=== PATIENT | female | born 2005 | race Caucasian/White ===

== ENCOUNTER 2023-12-27 18:28 | Emergency (ER) | payer OTHER, SELFPAY ==
[2023-12-27] VITALS (11 sets, daily range): BP systolic 101–142; BP diastolic 54–85; PULSE 72–130; RESP 17–20; TEMP 36.8–37.2; O2SAT 99–100
--- NOTE | ~2023-12-27 | US_ITS ---
EXAMINATION: US abdomen limited DATE: 12/27/2023 20:14 INDICATION: right upper quadrant pain TECHNIQUE: Multiple grayscale and Doppler ultrasound images of limited portions of the abdomen were o btained. COMPARISON: None available. FINDINGS: The visualized portions of the pancreas are normal. The liver is mildly enlarged, with norm al echogenicity and echotexture. No surface nodularity. Normal hepatopetal flow in the main portal ve in. The gallbladder is normal with no abnormal wall thickening, pericholecystic fluid or stones. The common bile duct measures 3 mm. There was a positive sonographic Montero sign. IMPRESSION: Hepatomegaly. Positive sonographic Montero sign with otherwise normal appearing gallbladder and common bile duct. Reviewed, dictated and finalized at location K. IMPRESSION: Hepatomegaly. Positive sonographic Montero sign with otherwise normal appearing gallbladder an d common bile duct.
--- NOTE | ~2023-12-27 | CT_ITS ---
EXAMINATION: CT abdomen pelvis w con DATE: 12/27/2023 20:17 INDICATION: right lower quadrant pain TECHNIQUE: Computed tomography (CT) of the abdomen and pelvis was performed with 100 mL Omnipaque-350 intravenous contrast. Automated exposure control and iterative reconstruction technique were employe d. The dose-length product was 500.48 mGy-cm. COMPARISON: Right upper quadrant ultrasound, same date. FINDINGS: Lower thorax: Unremarkable Liver: Mildly enlarged. Biliary/Gallbladder: Gallbladder is normal. No bile duct dilation. Pancreas: No mass or duct dilation. Spleen: Normal. Adrenals:No mass. Kidneys: No suspicious mass, obstructing stone, or hydronephrosis. GI tract: Mild distal esophageal and gastric wall edema. No small or large bowel dilation. Normal sheryl endix. Mesentery/Peritoneum: No ascites, mass, or free air. Retroperitoneum: No mass. Pelvis: Pelvic organs are within normal limits. Soft Tissues: Soft tissues and body wall unremarkable. Bones: No acute osseous finding. IMPRESSION: Mild esophagitis/gastritis. Mild hepatomegaly. Otherwise unremarkable CT abdomen and pelvis findings. Reviewed, dictated and finalized at location K.
[2023-12-27 19:22] LABS: Basophils Percent Auto 0.5 % (0.2-1.2); Eosinophils Absolute Auto 0.1 K/mm3 (0-0.3); Eosinophils Percent Auto 1.8 % (0-4.4); Hematocrit 38.3 % (37.0-47.0); Hemoglobin 12.9 g/dL (12.0-15.0); Lymphocytes Absolute Auto 0.68 K/mm3 (0.9-3.2); Lymphocytes Percent Auto 17.6 % (18.3-44.2); Mean Corpuscular HGB Conc 33.7 g/dl (32-36); Mean Corpuscular Hemoglobin 30.4 pg (26-34); Mean Corpuscular Volume 90.1 fl (80-100); Mean Platelet Volume 9.9 fl (7.4-10.4); Monocytes Absolute Auto 0.6 K/mm3 (0.1-0.6); Monocytes Percent Auto 15.5 % (2.6-8.5); Neutrophils Absolute Auto 2.5 K/mm3 (1.3-6.7); Neutrophils Percent Auto 64.6 % (45.5-73.1); Platelet Count Result 153 k/mm3 (150-375); Red Blood Count 4.25 M/mm3 (4.2-5.4); Red Cell Distribution Width 11.8 % (11.5-14.5); White Blood Count 3.9 K/mm3 (4.5-10.0)
[2023-12-27 19:37] LABS: Appearance Urine Clear (Clear); Bilirubin Urine Negative (Negative); Blood Urine Negative (Negative); Color Urine Yellow (Yellow); Glucose Urine UA Negative (Negative); Ketones Urine 3+ mg/dL (Negative); Leukocyte Esterase Ur Negative LEU/UL (Negative); Nitrate Urine Negative (Negative); Protein Urine Negative (Negative); Specific Grav Ur 1.028 (1.001-1.035); Urobilinogen Urine 0.2 mg/dL (<2.0); pH Urine 5.5 (5.0-9.0)
[2023-12-27 19:39] LABS: Alanine Aminotransferase 23 U/L (6-35); Albumin Level 4.3 g/dL (3.5-5.1); Alkaline Phosphatase 43 U/L (38-126); Anion Gap 6 mmol/L (8-16); Aspartate Amino Transferase 31 U/L (14-36); Bilirubin,Total 0.4 mg/dL (0.2-1.3); Blood Urea Nitrogen 14 mg/dL (7-17); Calcium 9.6 mg/dL (8.4-10.2); Carbon Dioxide 24 mmol/L (22-30); Chloride 103 mmol/L (98-107); Estimated Glomerular Filt Rate > 60; Glucose 103 mg/dL (65-110); Lipase 33 U/L (23-300); Potassium 4.3 mmol/L (3.4-5.0); Sodium 133 mmol/L (137-145)
[2023-12-27 19:41] LABS: Add Urine Microscopic? NO
[2023-12-27] MEDS: SODIUM CHLORIDE 0.9% IV 1,000 ML 999 ML IV CONT (20:21)
[2023-12-27 21:24] LABS: Influenza A QL RT-PCR Positive (Negative); Influenza B QL RT-PCR Negative (Negative); RSV RNA, RT-PCR Negative (Negative); SARS-CoV-2 RNA PCR Negative (Negative)
--- NOTE | 2023-12-27 21:55 | ED.GENADULT ---
HPI - General Adult General Chief complaint: Abdominal Pain Stated complaint: abdominal pain Time Seen by Provider: 12/27/23 19:14 History of Present Illness HPI narrative: Patient 18-year-old female who presents emergency department with chief complaint of abdominal pain. The patient states she has been having some pressure in her ears some upper respiratory symptoms that started yesterday the patient states that she also has been having epigastric and right upper quadrant pain the patient reports she has prior history of the the gallbladder dysfunction Related Data Allergies Allergy/AdvReac Type Severity Reaction Status Date / Time No Known Allergies Allergy Verified 12/27/23 21:23 Review of Systems Review of Systems: A 10 system review of systems was completed on the patient and is negative except for what is stated in the HPI. Nursing and ancillary documentation was reviewed. Exam Narrative: GENERAL: Well-appearing, well-nourished, and in no acute distress. HEAD: Normocephalic, atraumatic. EYES: PERRLA and EOMI. ENT: Nares clear, no rhinorrhea or epistaxis. Mucous membranes moist. NECK: Supple. CHEST: Clear to auscultation. No respiratory distress. HEART: Regular rate and rhythm. No murmur heard. Normal peripheral pulses. ABDOMEN: Soft, tenderness to palpation right upper quadrant, nondistended, normal active bowel sounds. EXTREMITIES: Normal range of motion. No edema. SKIN: Warm, dry, no rash. NEURO: No focal deficits. Alert and oriented x3. PSYCH: Normal mood and affect. Course Vital Signs Vital signs: Vital Signs Temperature 37.2 C 12/27/23 18:34 Pulse Rate 130 H 12/27/23 18:34 Respiratory Rate 20 12/27/23 18:34 Blood Pressure 142/75 H 12/27/23 18:34 Pulse Oximetry 99 12/27/23 18:34 Temperature 37.2 C 12/27/23 18:34 Pulse Rate 97 12/27/23 21:20 Respiratory Rate 18 12/27/23 21:20 Blood Pressure 102/54 L 12/27/23 21:20 Pulse Oximetry 100 12/27/23 21:20 Medical Decision Making [facility] Narrative Medical decision making narrative: Differential diagnosis include cholecystitis, choledocholithiasis, pancreatitis, biliary colic, viral syndrome, COVID, flu, RSV Laboratory studies were obtained on the patient showed a white count of 3.9 electrolytes within normal limits liver enzymes were normal lipase was normal urinalysis showed 3+ ketones but otherwise negative influenza a was positive CT scan of the abdomen pelvis showed Mild esophagitis/gastritis. Mild hepatomegaly. Otherwise unremarkable CT abdomen and pelvis findings. Ultrasound of the right upper quadrant showed Hepatomegaly. Positive sonographic Montero sign with otherwise normal appearing gallbladder and common bile duct. The case was discussed with surgery on-call who recommended the patient follow-up with her primary care provider and the patient may need new HIDA scan to be performed as her last 1 was at age 8 Vital Signs Vital Signs: Vital Signs Temperature 37.2 C 12/27/23 18:34 Pulse Rate 130 H 12/27/23 18:34 Respiratory Rate 20 12/27/23 18:34 Blood Pressure 142/75 H 12/27/23 18:34 Pulse Oximetry 99 12/27/23 18:34 Temperature 37.2 C 12/27/23 18:34 Pulse Rate 97 12/27/23 21:20 Respiratory Rate 18 12/27/23 21:20 Blood Pressure 102/54 L 12/27/23 21:20 Pulse Oximetry 100 12/27/23 21:20 Lab Data 12/27/23 19:17 12/27/23 19:17 Labs: Lab Results 12/27/23 12/27/23 12/27/23 Range/Units 19:17 19:25 20:39 WBC 3.9 L (4.5-10.0) K/mm3 RBC 4.25 (4.2-5.4) M/mm3 Hgb 12.9 (12.0-15.0) g/dL Hct 38.3 (37.0-47.0) % MCV 90.1 (80-100) fl MCH 30.4 (26-34) pg MCHC 33.7 (32-36) g/dl RDW 11.8 (11.5-14.5) % Plt Count 153 (150-375) k/mm3 MPV 9.9 (7.4-10.4) fl Immature Gran % (Auto) 0.0 (0-0.5) % Neut % (Auto) 64.6 (45.5-73.1) % Lymph % (Auto) 17.6 L (18.3-44.2
== END 2023-12-27 22:37 | disposition home or self-care (01) ==
PROVIDERS: Emergency Medicine; Emergency Provider Emergency Medicine
DX: J10.1 Influenza due to other identified influenza virus with other respiratory manifestations (principal); R10.31 Right lower quadrant pain; Z20.822 Contact with and (suspected) exposure to COVID-19; R16.0 Hepatomegaly, not elsewhere classified; K20.90 Esophagitis, unspecified without bleeding; K29.70 Gastritis, unspecified, without bleeding
CPT/HCPCS: 36415; 74177; 76705; 80053; 81025; 83690; 85025; 87637; 96360; 99284; J7030; Q9967

== ENCOUNTER 2024-03-30 10:15 | Outpatient (CLI) | payer OTHER, SELFPAY ==
--- NOTE | 2024-03-30 | ECG_ITS ---
Test Date: 2024-03-30 11:13:25 Measurements Intervals [place] Rate: 68 P: 46 VA: 145 QRS: 84 QRSD: 80 T: 40 QT: 373 QTc: 398 Interpretive Statements SINUS RHYTHM WITH SINUS ARRHYTHMIA No previous ECG available for comparison Electronically Signed On 03-31-2024 15:50:10 CDT by Miko Decker M.D.
[2024-03-30 11:25] LABS: Basophils Percent Auto 0.7 % (0.2-1.2); Eosinophils Absolute Auto 0.1 K/mm3 (0-0.3); Eosinophils Percent Auto 1.6 % (0-4.4); Hematocrit 41.9 % (37.0-47.0); Hemoglobin 13.7 g/dL (12.0-15.0); Immature Granulocyte Absolute 0.01 K/mm3 (0.00-0.031); Immature Granulocyte Percent A 0.2 % (0-0.5); Lymphocytes Percent Auto 35.9 % (18.3-44.2); Mean Corpuscular HGB Conc 32.7 g/dl (32-36); Mean Corpuscular Hemoglobin 29.5 pg (26-34); Mean Corpuscular Volume 90.1 fl (80-100); Mean Platelet Volume 10.4 fl (7.4-10.4); Monocytes Absolute Auto 0.4 K/mm3 (0.1-0.6); Neutrophils Absolute Auto 3.4 K/mm3 (1.3-6.7); Neutrophils Percent Auto 54.6 % (45.5-73.1); Platelet Count Result 210 k/mm3 (150-375); Red Blood Count 4.65 M/mm3 (4.2-5.4); Red Cell Distribution Width 11.6 % (11.5-14.5); White Blood Count 6.1 K/mm3 (4.5-10.0)
[2024-03-30 11:45] LABS: Alanine Aminotransferase 18 U/L (6-35); Albumin Level 4.7 g/dL (3.5-5.1); Alkaline Phosphatase 45 U/L (38-126); Anion Gap 12 mmol/L (4-12); Aspartate Amino Transferase 21 U/L (14-36); Bilirubin,Total 0.5 mg/dL (0.2-1.3); Blood Urea Nitrogen 15 mg/dL (7-17); Calcium 9.7 mg/dL (8.4-10.2); Carbon Dioxide 22 mmol/L (22-30); Chloride 107 mmol/L (98-107); Estimated Glomerular Filt Rate > 60; Glucose 110 mg/dL (65-110); Potassium 3.9 mmol/L (3.4-5.0); Sodium 141 mmol/L (137-145)
== END 2024-03-30 10:16 | disposition home or self-care (01) ==
DX: Z01.818 Encounter for other preprocedural examination (principal)
CPT/HCPCS: 36415; 80053; 85025; 93005

== ENCOUNTER 2025-01-28 08:28 | Emergency (ER) | payer OTHER, SELFPAY ==
[2025-01-28 08:38] VITALS: BP 128/86; PULSE 104; RESP 20; TEMP 36.3; O2SAT 100
--- NOTE | 2025-01-28 09:05 | ED.ABDPAIN ---
HPI - Abdominal Pain General Chief Complaint: Abdominal Pain Stated Complaint: abd pain Time Seen by Provider: 01/28/25 09:00 Source: patient and RN notes reviewed Mode of arrival: ambulatory Limitations: no limitations History of Present Illness HPI narrative: 19 y/o female with hx IBS, PCOS, cholecystectomy, and redundant colon presented for c/o Left upper and lower abdominal pain x3 days. Endorses associated nausea and liquid diarrhea, and frequent belching of rotten egg taste. Says pain worsened last night at 1999, and has not improved and has not been able to sleep. Taking Omeprazole. Denies hematochezia or melena, fever or lethargy. Pt started semaglutide 5 weeks ago. Denies concern for , on oral BCP. Reports last year she had 7 colonoscopies, 3 UGI's in [place]. Related Data Home Medications ?Medication ?Instructions ?Recorded ?Confirmed ?Last Taken ?Type norgestimate 0.25 mg-ethinyl tablet 01/28/25 Unknown History estradiol 0.035 mg tablet (Estarylla) omeprazole 20 mg capsule,delayed 20 mg PO DAILY 01/28/25 01/28/25 Unknown History release semaglutide 0.5 mg/0.1 mL mg subcut 01/28/25 Unknown History subcutaneous syringe tenapanor 50 mg tablet (Ibsrela) mg 01/28/25 Unknown History Allergies Allergy/AdvReac Type Severity Reaction Status Date / Time No Known Allergies Allergy Verified 01/28/25 08:51 Review of Systems Review of Systems: CONSTITUTIONAL: Denies body aches, fever, chills ENT: Denies rhinorrhea, congestion CARDIOVASCULAR: Denies chest pain, palpitations, or edema. RESPIRATORY: Denies cough or dyspnea. GASTROINTESTINAL: Endorses abdominal pain, nausea, diarrhea. Denies vomiting, hematochezia, melena, hematemesis GENITOURINARY: Denies dysuria, hematuria, or CVA tenderness. SKIN: Denies rash, itching, or wounds. MUSCULOSKELETAL: Denies back pain, joint pain, or myalgia. NEUROLOGIC: Denies headache, numbness, tingling, or weakness. All systems reviewed & are unremarkable except as noted in HPI and below PMFSH Past Medical History Medical History (Updated 01/28/25 @ 09:25 by María Alfaro, PHILL) Cyclic vomiting syndrome PCOS (polycystic ovarian syndrome) IBS (irritable bowel syndrome) Surgical History Surgical History (Updated 01/28/25 @ 09:20 by María Alfaro APRN) History of cholecystectomy Comments At time of signature, I have reviewed and agree with nursing past medical, surgical, social and family history unless otherwise noted. Please see nursing chart for further information. There is no relevant family history pertinent to the presenting complaint Exam Narrative: GENERAL: Well-appearing, and in no acute distress. EYES: EOMI. Conjunctivae normal. ENT: Mucous membranes pink and moist. CHEST: No respiratory distress. Clear to auscultation. HEART: Regular rate and rhythm. No murmur appreciated. Normal peripheral pulses. ABDOMEN: Tender abdomen to LUQ and LLQ. abd soft, mildly distended, hyperactive bowel sounds. No guarding, rebound tenderness, asymmetry, periumbilical tenderness, or suprapubic tenderness. EXTREMITIES: Normal range of motion. No edema. SKIN: Warm, dry, no rash. Capillary refill normal. Normal skin turgor. NEURO: No focal deficits. Alert and oriented x3. PSYCH: Normal affect. Course Course Emergency Course: Patient is aware of diagnosis, understands and agrees to treatment plan. Anticipatory guidance given. Patient agrees to follow-up as directed and is aware of reasons to seek care at the emergency department. Portions of this record may have been created with voice recognition software Level of Care: Express Care Visit Vital Signs Vital signs: Vital Signs Temperature 97.3 F L 01/28/25 08:38 Pulse Rate 104 H 01/28/25 08:38 Respiratory Rate 20 01/28/25 08:38 Blood Pressure 128/86 01/28/25 08:38 Pulse Oximetry 100 01/28/25 08:38 Oxygen Delivery Room Air 01/28/25 08:38 Temperature 97.3 F L 01/28/25 08:38 Pulse Rate 104 H 01/28/25 08:38 Respiratory Rate 20 01/28/25 08:38 Blood Pressure 128/86 01/28/25 08:38 Pulse Oximetry 100 01/28/25 08:38 Oxygen Delivery Room Air 01/28/25 08:38 Transfer Transfered to: [facility] Transportation: Other (Private vehicle) Transfer rationale: Pt is agreeable to transfer. Requests transfer to [facility] via private vehicle declines ambulance. Risks of transportation reviewed with pt including injury, worsening of condition and . v/u. mother will be driving pt; Report called to hospital, spoke with Adela Toro PA-C, accepting physician. Pt is in stable condition at time of transfer. Advised to remain NPO and go directly to the hospital. MDM - Abdominal Pain MDM Narrative Medical decision making narrative: patient presented for complaint of left upper and lower abdominal pain with associated nausea and diarrhea for 3 days. Advised ER transfer. Differential Diagnosis Differential diagnosis: Likely abdominal pain, acute appendicitis, calculus of kidney, constipation, diverticulitis, endometriosis, gastroenteritis, pancreatitis and small bowel obstruction Discharge Plan Discharge Clinical Impression: Abdominal pain Qualifiers: Abdominal location: left upper quadrant Qualified Code(s): R10.12 - Left upper quadrant pain Patient Disposition: Acute Care Hospital Condition: Stable Patient Language: Guyanese Prescriptions: No Action norgestimate-ethinyl estradiol [Estarylla] 0.25-0.035 mg tablet Ibsrela 50 mg tablet semaglutide 0.5 mg/0.1 mL syringe subcut omeprazole 20 mg capsule,delayed release(DR/EC) 20 mg PO DAILY Follow-up/Referrals: UNKNOWN,DOCTOR [Primary Care Provider] - Time of Disposition: 09:08
== END 2025-01-28 09:20 | disposition short-term general hospital (02) ==
PROVIDERS: Emergency Provider Nurse Practitioner Family
DX: R10.12 Left upper quadrant pain (principal); R10.32 Left lower quadrant pain; E28.2 Polycystic ovarian syndrome; K58.9 Irritable bowel syndrome, unspecified
CPT/HCPCS: 99212; G0463

== ENCOUNTER 2025-01-28 09:39 | Emergency (ER) | payer OTHER, SELFPAY ==
--- NOTE | ~2025-01-28 | US_ITS ---
EXAMINATION: US pelvic complete w TV DATE: 01/28/2025 12:36 INDICATION: Left lower quadrant abdominal pain. Polycystic ovarian syndrome. TECHNIQUE: Multiple transabdominal and endovaginal sonographic images of the pelvis were obtained. COMPARISON: CT dated 01/28/2025 FINDINGS: The uterus measures 6.8 x 2.4 x 4.4 cm. The endometrial complex measures 1 mm in thickness. The righ t ovary measures 2.6 x 2.5 x 1.5 cm. There are several subcentimeter anechoic cysts/follicles at the right ovary. Vascular flow with arterial waveforms identified in the right ovary on color Doppler. Th e left ovary is not visualized. Review of CT performed 90 minutes prior demonstrates similar size and appearance of the left ovary to the right ovary, also with a few Almar Osa cyst/follicles and with e nhancement on the postcontrast imaging. There is minimal amount of likely physiologic free fluid in t he pelvis. IMPRESSION: 1. A few subcentimeter anechoic cysts/follicles at the right ovary. Left ovary is not visualized but as noted above on the immediately prior CT of the abdomen and pelvis the left ovary appears similar i n size and appearance, also with a few subcentimeter cysts/follicles and with enhancement visible in both ovaries on the postcontrast CT. 2. Normal uterus and trace amount of likely physiologic free fluid in the deep pelvis. Reviewed, dictated and finalized at location A. IMPRESSION: 1. A few subcentimeter anechoic cysts/follicles at the right ovary. Left ovary is not visualized but as noted above on the immediately prior CT of the abdomen and pelvis the left ovary appears similar in size and appearance, also with a few subcentimeter cysts/follicles and with enhancement visible in both ovaries on the postcontrast CT. 2. Normal uterus and trace amount of likely physiologic free fluid in the deep pelvis.
--- NOTE | ~2025-01-28 | CT_ITS ---
CLINICAL INDICATION: Left lower quadrant pain COMPARISON: 12/27/2023. TECHNIQUE: Multiple contiguous axial images of the abdomen and pelvis were performed following the ad ministration of with 100 mL Omnipaque-350 intravenous contrast The dose-length product (DLP) was 675.43 mGy-cm. Automated exposure control and iterative reconstruction technique were employed. FINDINGS/OBSERVATIONS: Visualized lower thorax: The bilateral lung bases are clear. The heart is of normal size, without pericardial effusion. Liver: The liver demonstrates homogeneous enhancement and is not enlarged. Gallbladder and biliary system: The gallbladder is surgically absent. Pancreas: The pancreas enhances homogeneously without ductal dilatation. Spleen: The spleen enhances homogeneously and is not enlarged. Kidneys: The bilateral kidneys enhance symmetrically without hydronephrosis or renal calculi. Adrenal glands: Unremarkable. Gastrointestinal tract: Air-fluid levels are identified within the distal colon which is somewhat distended without significa nt surrounding inflammatory change or mural thickening. Appendix: The fluid-filled appendix is of normal caliber (axial series, images 116 through 130). Vasculature: Unremarkable. Lymph nodes: No pathologically enlarged or morphologically suspicious lymph nodes within the retroperitoneum or at the root of the mesentery. Pelvic structures: The bladder is decompressed, and otherwise unremarkable. The uterus is anteverted and anteflexed and otherwise unremarkable. Body wall and musculoskeletal: No significant degenerative disease within the lower thoracic or lumbosacral spine. IMPRESSION: Findings which are suggestive of a diarrhea-like illness within the distal colon, for which clinical correlation is needed. No acute intra-abdominal pathology, as detailed above. Reviewed, dictated and finalized at location A. IMPRESSION: Findings which are suggestive of a diarrhea-like illness within the distal colo n, for which clinical correlation is needed. No acute intra-abdominal pathology, as detailed above.
[2025-01-28 09:49] VITALS: BP 132/103; PULSE 116; RESP 19; TEMP 36.9; O2SAT 100
[2025-01-28 10:12] LABS: BEDSIDEPREGUCG Negative (Negative)
[2025-01-28 10:15] LABS: Basophils Percent Auto 0.4 % (0.2-1.2); Eosinophils Absolute Auto 0.3 K/mm3 (0-0.3); Eosinophils Percent Auto 3.5 % (0-4.4); Hematocrit 44.7 % (37.0-47.0); Hemoglobin 15.2 g/dL (12.0-15.0); Immature Granulocyte Absolute 0.02 K/mm3 (0.00-0.031); Immature Granulocyte Percent A 0.3 % (0-0.5); Lymphocytes Absolute Auto 2.67 K/mm3 (0.9-3.2); Lymphocytes Percent Auto 34.9 % (18.3-44.2); Mean Corpuscular Hemoglobin 29.7 pg (26-34); Mean Corpuscular Volume 87.3 fl (80-100); Mean Platelet Volume 10.1 fl (7.4-10.4); Monocytes Absolute Auto 0.6 K/mm3 (0.1-0.6); Monocytes Percent Auto 8.4 % (2.6-8.5); Neutrophils Percent Auto 52.5 % (45.5-73.1); Platelet Count Result 286 k/mm3 (150-375); Red Blood Count 5.12 M/mm3 (4.2-5.4); Red Cell Distribution Width 11.9 % (11.5-14.5); White Blood Count 7.6 K/mm3 (4.5-10.0)
[2025-01-28] MEDS: ONDANSETRON INJ 4 MG/2 ML VIAL IV PUSH (10:16)
[2025-01-28] MEDS: FAMOTIDINE 20 MG/2 ML VIAL IV PUSH (10:16)
[2025-01-28] MEDS: SODIUM CHLORIDE 0.9% IV 1,000 ML 999 ML IV CONT (10:16)
[2025-01-28 10:26] VITALS: BP 114/83; PULSE 87; RESP 17; O2SAT 98
[2025-01-28 10:31] LABS: Add Urine Microscopic? YES; Appearance Urine Cloudy (Clear); Bacteria Urine 3+ /hpf; Bilirubin Urine Negative (Negative); Blood Urine Negative (Negative); Color Urine Yellow (Yellow); Glucose Urine UA Negative (Negative); Ketones Urine Trace mg/dL (Negative); Leukocyte Esterase Ur 2+ LEU/UL (Negative); Mucus Urine Present /lpf; Need Manual Microscopic Reviewed; Nitrate Urine Negative (Negative); Protein Urine 1+ mg/dL (Negative); Specific Grav Ur 1.031 (1.001-1.035); Squamous Epithelial Cell Urine Occasional /hpf (Few); Urobilinogen Urine 0.2 mg/dL (<2.0); WBC Urine 51-100 /hpf (0-3); pH Urine 5.5 (5.0-9.0)
--- OUTSIDE RECORDS SUMMARY | 2025-01-28 10:31 | XMS_ITS | Clinical Summary ---
Author Organization [facility] Address [address] [facility] [address] [place] [address] Phone Care Team Providers Care Tool Distributor Name Role Phone Chayito Rolle MD Primary Care Provider [phone] Allergies No known active allergies Medications SPRINTEC 28 0.25-35 MG-MCG Tablet Take 1 Tab by mouth daily. 2 06/22/2019 Active esomeprazole (NEXIUM) 20 MG CAPSULE DELAYED RELEASE 0 05/08/2019 Active ibuprofen (MOTRIN) 200 MG Tablet Take 200 mg by mouth every 8 hours as needed. Active Acetaminophen (TYLENOL EXTRA STRENGTH PO) Take by mouth. Active methylPREDNISolo ne (MEDROL DOSPACK) 4 MG Tablet Therapy PackIndications: Viral URI with cough Take 1 Tab by mouth See Admin Instruction s. 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 Gender Identity Not on file Sexual Orientation Not on file Last Filed Vital Signs Vital Sign Reading Time Taken Comments Blood Pressure 100/62 07/08/2019 8:18 AM CDT Pulse 94 07/08/2019 8:18 AM CDT Temperature 36.7 C (98 F) 07/08/2019 8:18 AM CDT Respiratory Rate 18 07/08/2019 8:18 AM CDT Oxygen Saturation 97% 07/08/2019 8:18 AM CDT Inhaled Oxygen Concentration - - Weight 62.6 kg (138 lb) 07/08/2019 8:18 AM CDT Height 177.8 cm (5' 10 ) 07/08/2019 8:18 AM CDT Body Mass Index 19.8 07/08/2019 8:18 AM CDT Plan of Treatment Health Maintenance Due Date Last Done Comments Hepatitis C Virus (HCV) Screening 2003 Hepatitis B Immunization (2 of 3 - 3-dose series) 2003 2003 Meningococcal B Immunization (1 of 2 - Standard) 2019 Influenza Immunization (#1) 2024 08/25/2011 SARS-COV-2 Immunization ( season) 2024 Respiratory Syncytial Virus (RSV) Immunization (Adult) (1 - 1-dose 75+ series) 2078 Polio (IPV) Immunization Discontinued 008, 07/29/2004, 02/26/2004, Additional history exists Measles Mumps Rubella (MMR) Immunization Discontinued 05/22/2009, 11/04/2004 Varicella Immunization Discontinued 05/22/2009, 2004 Hepatitis A Immunization Discontinued 04/03/2014, 04/2011 Pneumococcal Immunization Combined Aged Out 04/03/2014, 07/20/2005, 04/29/2004, Additional history exists No longer eligible based on patient's age to complete this topic DTaP/Tdap/Td Immunization Discontinued 2014, 05/22/2009, 07/20/2005, Additional history exists Meningococcal Immunization (ACWY) Aged Out 05/30/2015 No longer eligible based on patient's age to complete this topic TdaP Immunization Completed 05/30/2015 Human Papillomavirus (HPV) Immunization Completed 10/03/2018, 10/06/2017 Rotavirus Immunization Aged Out No lo nger eligible based on patient's age to complete this topic Insurance [facility] Care Teams Tool Distributor Relationship Specialty Start Date End Date Chayito Rolle MD [address] [id number] PCP - General Pediatric Gastroenterology 11/24/11
--- OUTSIDE RECORDS SUMMARY | 2025-01-28 10:31 | XMS_ITS | Clinical Summary ---
Author Organization [facility] Virtual Care Address [address] [place] [phone] Phone Care Team Providers Care Platform Engineer Name Role Phone Unknown, Notinfile Primary Care Provider Unavail able Allergies No known active allergies Medications Thalia 0.25-35 mg-mcg per tablet Take 1 tablet by mouth daily Active triamcinolone (KENALOG) 0.1 % creamIndications :Contact dermatitis, unspecified contact dermatitis type, unspecified trigger Apply to affected area 1-2 times daily as needed. Avoid face and groin. 30 g 07/27/20 25 Active Additional Information Patient not taking.Reported on 11/22/2024 linaCLOtide (LINZESS) 72 mcg capsule Take 1 capsule (72 mcg total) by mouth daily Active Active Problems No known active problems Encounters Date Type Department Care Team Description 11/22/2024 2:15 PM HUSKER OPERATOR Ancillary Procedure [facility] Imaging at [address] [phone] H/O hand surgery 11/22/2024 2:00 PM HUSKER OPERATOR Office Visit [facility] Convenient Care at [address] [phone] Roger Higginbotham NP Left wrist pain (Primary Dx) from Last 3 Months Social History Tobacco Use Types Packs/Day Years Used Date Smoking Tobacco: Never Assessed Comments Unknown Sex and Gender Information Value Date Recorded Sex Assigned at Not on file Legal Sex Female 8:54 AM CDT Gender Identity Not on file Sexual Orientation Not on file Obstetrics History Last Filed Vital Signs Vital Sign Reading Time Taken Comments Blood Pressure 120/84 11/22/2024 2:04 PM HUSKER OPERATOR Pulse 89 11/22/2024 2:04 PM HUSKER OPERATOR Temperature 36.6 C (97.9 F) 11/22/2024 2:04 PM HUSKER OPERATOR Respiratory Rate 22 11/22/2024 2:04 PM HUSKER OPERATOR Oxygen Saturation 98% 11/22/2024 2:04 PM HUSKER OPERATOR Inhaled Oxygen Concentration - - Weight 86.2 kg (190 lb) 11/22/2024 2:04 PM HUSKER OPERATOR Height 177.8 cm (5' 10 ) 07/27/2024 12:11 PM CDT Body Mass Index 27.26 07/27/2024 12:11 PM CDT Plan of Treatment Health Maintenance Due Date Last Done Comments Cervical Cancer Screening 2003 Depression Screening 2003 Hepatitis C Screening 2003 Meningococcal B Vaccine (1 o f 2 - Standard) 2019 Regular Well Visit/Exam 18-64 2021 DTaP/Tdap/Td Vaccine (7 - Td or Tdap) 05/30/2025 05/30/2015, 05/22/2009, 07/20/2005, Additional history exists Influenza Vaccine (Season Ended) 2025 08/25/20 11, 07/23/2011 Hepatitis B Screening Completed 04/29/2004 , 2003, 2003 Varicella Vaccines Completed 05/22/2009, 11/04/2004 Pneumococcal vaccine <65 Completed 014, 07/20/2005, 04/29/2004, Additional history exists HPV Vaccines Completed 10/03/2018, 10/06/2017 Meningococcal Vaccine Completed 10/07/2020, 015 Procedures Procedure Name Priority Date/Time Associated Diagnosis Comments XR WRIST LEFT 3 OR MORE VIEWS Schedule KHANH, Read KHANH (Appt Today, Awaiting Results) 11/22/2024 2:19 PM HUSKER OPERATOR H/O hand surgery from Last 3 Months Results * XR Wrist Left 3 or More Views (11/22/2024 2:19 PM HUSKER OPERATOR) Anatomical Region Laterality Modality Upper Extremities, Wrist Left Digital Radiography 11/22/2024 3:10 PM HUSKER OPERATOR Narrative 11/22/2024 3:11 PM HUSKER OPERATOR EXAM DESCRIPTION: XR WRIST LEFT 3 OR MORE VIEWS REASON FOR STUDY: Other (type) Pt complains of mid anterior wrist pain x 3 weeks. No known injury or prior surgery FINDINGS: Three views left wrist submitted without comparison. No acute fracture. Alignment is normal. The joint spaces are normal. No dorsal wrist soft tissue swelling. IMPRESSION: No acute fracture. THIS IS AN ELECTRONICALLY VERIFIED FINAL REPORT 11/22/2024 3:11 PM - Electronically signed by Lane Reyna M.D. T: Report ID: [id number] Reading Location: [id number] Procedure Note [address] Reyna MD - 11/22/2024 EXAM DESCRIPTION: XR WRIST LEFT 3 OR MORE VIEWS REASON FOR STUDY: Other (type) Pt complains of mid anterior wrist pain x 3 weeks. No known injury orprior surgery FINDINGS: Three views left wrist submitted without comparison. No acute fracture. Alignment is normal. The joint spaces are normal. No dorsal wrist soft tissue swelling. IMPRESSION: No acute fracture. THIS IS AN ELECTRONICALLY VERIFIED FINAL REPORT 11/22/2024 3:11 PM - Electronically signed by Lane Reyna M.D. T: Report ID: [id number] Reading Location: [id number] Roger Higginbotham NP IMG XR PROCEDURES Final Result from Last 3 Months Insurance [facility] Care Teams Platform Engineer Relationship Specialty Start Date End Date Unknown, Notinfile PCP - General 09/18/24
--- OUTSIDE RECORDS SUMMARY | 2025-01-28 10:31 | XMS_ITS | Referral Summary ---
Author Organization [facility] Virtual Care Address [address] [place] [phone] Phone Care Team Providers Care Formal Waiter/Waitress Name Role Phone Unknown, Notinfile Primary Care Provider Unavail able Encounters Date Type Department Care Team Description 11/22/2024 2:15 PM INSIDE BARREL LATHE OPERATOR Ancillary Procedure [facility] Medical [facility] Imaging at [address] [phone] H/O hand surgery 11/22/2024 2:00 PM INSIDE BARREL LATHE OPERATOR Office Visit [facility] Convenient Care at [address] [phone] Roger Higginbotham NP Left wrist pain (Primary Dx) from Last 3 Months Allergies No known active allergies Medications Thalia 0.25-35 mg-mcg per tablet Take 1 tablet by mouth daily Active triamcinolone (KENALOG) 0.1 % creamIndications :Contact dermatitis, unspecified contact dermatitis type, unspecified trigger Apply to affected area 1-2 times daily as needed. Avoid face and groin. 30 g 4 07/27/20 25 Active Additional Information Patient not taking.Reported on 11/22/2024 linaCLOtide (LINZESS) 72 mcg capsule Take 1 capsule (72 mcg total) by mouth daily Active Active Problems No known active problems Social History Tobacco Use Types Packs/Day Years Used Date Smoking Tobacco: Never Assessed Comments Unknown Sex and Gender Information Value Date Recorded Sex Assigned at Not on file Legal Sex Female 8:54 AM CDT Gender Identity Not on file Sexual Orientation Not on file Last Filed Vital Signs Vital Sign Reading Time Taken Comments Blood Pressure 120/84 11/22/2024 2:04 PM INSIDE BARREL LATHE OPERATOR Pulse 89 11/22/2024 2:04 PM INSIDE BARREL LATHE OPERATOR Temperature 36.6 C (97.9 F) 11/22/2024 2:04 PM INSIDE BARREL LATHE OPERATOR Respiratory Rate 22 11/22/2024 2:04 PM INSIDE BARREL LATHE OPERATOR Oxygen Saturation 98% 11/22/2024 2:04 PM INSIDE BARREL LATHE OPERATOR Inhaled Oxygen Concentration - - Weight 86.2 kg (190 lb) 11/22/2024 2:04 PM INSIDE BARREL LATHE OPERATOR Height 177.8 cm (5' 10 ) 07/27/2024 12:11 PM CDT Body Mass Index 27.26 07/27/2024 12:11 PM CDT Plan of Treatment Not on file Procedures Procedure Name Priority Date/Time Associated Diagnosis Comments XR WRIST LEFT 3 OR MORE VIEWS Schedule KHANH, Read KHANH (Appt Today, Awaiting Results) 11/22/2024 2:19 PM INSIDE BARREL LATHE OPERATOR H/O hand surgery from Last 3 Months Results * XR Wrist Left 3 or More Views (11/22/2024 2:19 PM INSIDE BARREL LATHE OPERATOR) Anatomical Region Laterality Modality Upper Extremities, Wrist Left Digital Radiography 11/22/2024 3:10 PM INSIDE BARREL LATHE OPERATOR Narrative 11/22/2024 3:11 PM INSIDE BARREL LATHE OPERATOR EXAM DESCRIPTION: XR WRIST LEFT 3 [...] by Lane Reyna M.D. T: Report ID: [id number] Reading Location: [id number] Procedure Note [address] Reyna MD - 11/22/2024 [...] by Lane Reyna M.D. T: Report ID: [id number] Reading Location: [place] [address] Roger Higginbotham ACCREDITATION MANAGER IMG XR PROCEDURES Final Result from Last 3 Months Insurance [facility] H[facility]/PPO Address: [facility] [address] [place] [address] Care Teams Formal Waiter/Waitress Relationship Specialty Start Date End Date Unknown, Notinfile PCP - General 09/18/24
--- OUTSIDE RECORDS SUMMARY | 2025-01-28 10:32 | XMS_ITS | Continuity of Care Document ---
Author Organization [facility] Address [address] [place] [address] Phone Care Team Providers Care Family Consumer Science Fcs Teacher Name Role Phone Gustavo HERMOSILLO MD, Amir Unavailable Unavailable Procedures Procedure Date Routine ophthalmological exa Routine ophthalmological exa Advance Directives Directive Yes / No Effective Date File Name No Information Encounters Encounter Description Practice Location Reason(s) For Visit Diagnoses Date Provider Providers Copied on Encounter [facility], [address] [place] [address], [id number] tel:[phone] [facility] [address] 9 Gustavo HERMOSILLO Amir. [facility], [address] [place] [address], [id number]. tel:[phone] Family History Family Member Type Diagnosis Age At Onset No Information Payers Payer name Insurance type Covered green party ID Authoriza tion(s) [facility] Adminstration CI [id number] Social History Type Description Quantity Date Captured Comments Sex Female Smoking Status No Information Chief Complaint And Reason For Visit No Information Reason For Referral Reason For Referral No Information History Of Present Illness Encounter Date Complaint History Of Prese nt Illness No Information Functional Status Date Functional Assessmen t No Information Instructions Date Instruction Additional Infor mation No Information Assessments Type Assessment Date No Information Patient Care Teams Name Effective Dates (start - stop) Status Members No Information
[2025-01-28 10:34] LABS: Alanine Aminotransferase 27 U/L (6-35); Albumin Level 5.1 g/dL (3.5-5.1); Alkaline Phosphatase 54 U/L (38-126); Anion Gap 18 mmol/L (4-12); Aspartate Amino Transferase 28 U/L (14-36); Bilirubin,Total 0.6 mg/dL (0.2-1.3); Blood Urea Nitrogen 16 mg/dL (7-17); Calcium 10.1 mg/dL (8.4-10.2); Carbon Dioxide 15 mmol/L (22-30); Chloride 109 mmol/L (98-107); Estimated CRCL calculation 108 ml/min; Estimated Glomerular Filt Rate > 60; Glucose 95 mg/dL (65-110); Lipase 44 U/L (23-300); Potassium 4.6 mmol/L (3.4-5.0); Sodium 142 mmol/L (137-145)
--- NOTE | 2025-01-28 10:39 | ED_ITS ---
HPI - Abdominal Pain General Chief Complaint: Abdominal Pain Stated Complaint: abd pain Time Seen by Provider: 01/28/25 09:41 Source: patient Mode of arrival: ambulatory Limitations: no limitations History of Present Illness HPI narrative: Patient is a 19-year-old female, with PMH of PCOS, IBS, who presents the ED with report of left-sided abdominal pain. Patient reports she has been having intermittent but worsening pain since Tuesday. Present in left upper and lower abdomen. Reports nausea, watery diarrhea, dysuria. Denies vomiting. Denies rectal bleeding, melena, hematuria. Denies fevers. Sent from urgent care for further evaluation. Denies previous issues with ovarian cysts. She has been on semaglutide for the past 5 weeks for her PCOS. Patient reports previous history of cholecystectomy and states at that time, she was diagnosed with redundant colon. Has since had colonoscopy which was normal. Related Data Home Medications ?Medication ?Instructions ?Recorded ?Confirmed ?Last Taken ?Type norgestimate 0.25 mg-ethinyl tablet 01/28/25 Unknown History estradiol 0.035 mg tablet (Estarylla) omeprazole 20 mg capsule,delayed 20 mg PO DAILY 01/28/25 01/28/25 Unknown History release semaglutide 0.5 mg/0.1 mL mg subcut 01/28/25 Unknown History subcutaneous syringe tenapanor 50 mg tablet (Ibsrela) mg 01/28/25 Unknown History Allergies Allergy/AdvReac Type Severity Reaction Status Date / Time No Known Allergies Allergy Verified 01/28/25 09:53 Review of Systems 2 Review of Systems: All systems reviewed & are unremarkable except as noted in HPI. All systems reviewed & are unremarkable except as noted in HPI and below PMFSH Past Medical History Medical History Cyclic vomiting syndrome PCOS (polycystic ovarian syndrome) IBS (irritable bowel syndrome) Surgical History Surgical History History of cholecystectomy Exam 2 Narrative: GENERAL: Well appearing, well-nourished, non-toxic, in no acute distress. HEAD: Normocephalic, atraumatic. RESPIRATORY: Airway patent, respirations nonlabored. Clear to auscultation bilaterally, no rales, rhonchi, wheezing. CARDIOVASCULAR: Regular rate and rhythm without murmurs, rubs, or gallops. ABDOMINAL: Soft, mild diffuse tenderness throughout left-sided abdomen, left upper quadrant left lower quadrant, epigastric region. Nondistended. Normoactive BS. MUSCULOSKELETAL: Moves all extremities. No gross deformities. SKIN: Warm, dry, normal color. NEURO: A&O X3. Speech clear. PSYCHIATRIC: Appropriate mood and affect. Normal interaction. Course Vital Signs Vital signs: Vital Signs Temperature 98.4 F 01/28/25 09:49 Pulse Rate 116 H 01/28/25 09:49 Respiratory Rate 19 01/28/25 09:49 Blood Pressure 132/103 H 01/28/25 09:49 Pulse Oximetry 100 01/28/25 09:49 Oxygen Delivery Room Air 01/28/25 09:49 Temperature 98.4 F 01/28/25 09:49 Pulse Rate 87 01/28/25 10:26 Respiratory Rate 17 01/28/25 10:26 Blood Pressure 114/83 01/28/25 10:26 Pulse Oximetry 98 01/28/25 10:26 Oxygen Delivery Room Air 01/28/25 09:49 MDM - Abdominal Pain MDM Narrative Medical decision making narrative: Patient presented to ED with several day history of left-sided abdominal pain, associated with nausea, diarrhea, dysuria. Patient was initially tachycardic upon arrival, however she was very anxious about getting IV. This improved after IV placement w/o further intervention. Afebrile here. CBC w/o leukocytosis or anemia, CMP with bicarb 15, anion gap of 18. Fluids ongoing. BG WNL. Kidney function is stable. Normal LFTs and lipase. UA concerning for infection, 2+ leuk esterase, 51-100 WBC, 3+ urine bacteria. Sent for culture. Will treat. Given dose of Rocephin in the ED. Bedside negative. CT scan of abdomen/pelvis was obtained showing diarrheal illness, no obstruction/ perforation/ infectious concerns. No surgical findings. Consistent with clinical picture. Patient does report that several of her coworkers were sick with similar symptoms last week. Suspicious for viral gastroenteritis. Patient reporting worsening pain in left lower quadrant on re-evaluation. Given additional pain control in the ED. With history of PCOS, pelvic ultrasound was obtained to rule out torsion. Pelvic ultrasound showing small bilateral cysts on ovaries. Did not completely visualize left ovary, but imaging of ovary on CT scan obtained prior did not appear to have any enlargement or other abnormalities. No evidence of torsion. Discussed lab and imaging findings with patient. She is still complaining of some pain, but declines further pain medication, including Tylenol, morphine, haldol. I discussed diagnosis of gastroenteritis, possibility of GI symptoms being side effect of semaglutide medication, UTI contributing to symptoms. Will discharge on Keflex with Bentyl, Zofran for home use. Patient is in agreement with plan. Again declined further pain medication, feels comfortable going home. Patient will be referred to GI for further evaluation. Given return precautions. Discharged in stable condition. Medical Records Attestation: I reviewed the patient's medical records. Lab Data Attestation: I reviewed the patient's lab results. 01/28/25 10:09 01/28/25 10:09 Labs: Lab Results 01/28/25 01/28/25 Range/Units 10:09 10:10 WBC 7.6 (4.5-10.0) K/mm3 RBC 5.12 (4.2-5.4) M/mm3 Hgb 15.2 H (12.0-15.0) g/dL Hct 44.7 (37.0-47.0) % MCV 87.3 (80-100) fl MCH 29.7 (26-34) pg MCHC 34.0 (32-36) g/dl RDW 11.9 (11.5-14.5) % Plt Count 286 (150-375) k/mm3 MPV 10.1 (7.4-10.4) fl Immature Gran % (Auto) 0.3 (0-0.5) % Neut % (Auto) 52.5 (45.5-73.1) % Lymph % (Auto) 34.9 (18.3-44.2) % Archer % (Auto) 8.4 (2.6-8.5) % Eos % (Auto) 3.5 (0-4.4) % Baso % (Auto) 0.4 (0.2-1.2) % Lymph # (Auto) 2.67 (0.9-3.2) K/mm3 Archer # (Auto) 0.6 (0.1-0.6) K/mm3 Eos # (Auto) 0.3 (0-0.3) K/mm3 Baso # (Auto) 0.0 (0.0-0.1) K/mm3 Abs Immat Gran (auto) 0.02 (0.00-0.031) K/mm3 Absolute Neuts (auto) 4.0 (1.3-6.7) K/mm3 Absolute Nucleated RBC 0.000 (0.0-0.012) K/mm3 Nucleated RBC % 0.0 (0.0-0.2) % Sodium 142 (137-145) mmol/L Potassium 4.6 (3.4-5.0) mmol/L Chloride 109 H (98-107) mmol/L Carbon Dioxide 15 L (22-30) mmol/L Anion Gap 18 H (4-12) mmol/L BUN 16 (7-17) mg/dL Creatinine 0.77 (0.7-1.0) mg/dL Estim Creat Clear Calc 108 ml/min Estimated GFR > 60 (59 - ) Glucose 95 (65-110) mg/dL Calcium 10.1 (8.4-10.2) mg/dL Total Bilirubin 0.6 (0.2-1.3) mg/dL AST 28 (14-36) U/L ALT 27 (6-35) U/L Alkaline Phosphatase 54 (38-126) U/L Total Protein 9.0 H (6.3-8.2) g/dL Albumin 5.1 (3.5-5.1) g/dL Lipase 44 (23-300) U/L Urine Color Yellow (Yellow) Urine Appearance Cloudy H (Clear) Urine pH 5.5 (5.0-9.0) Ur Specific Conner 1.031 (1.001-1.035) Urine Protein 1+ H (Negative) mg/dL Urine Glucose (UA) Negative (Negative) mg/dL Urine Ketones Trace H (Negative) mg/dL Ur Blood (Man) Negative (Negative) Urine Nitrate Negative (Negative) Urine Bilirubin Negative (Negative) Urine Urobilinogen 0.2 (<2.0) mg/dL Add Ur Microanalysis Reviewed Leukocyte Esterase Rfl 2+ H (Negative) BRIT/UL Urine RBC 3-5 H (0-2) /hpf Urine WBC 51-100 H (0-3) /hpf Ur Squamous Epith Cells Occasional (Few) /hpf Urine Bacteria 3+ H /hpf Urine Casts 6-10 Urine Mucus Present /lpf POC Urine HCG, Qual Negative (Negative) Imaging Data Attestation: I personally reviewed and interpreted this imaging study as follows: Radiologist's impression: ITS Impressions Abdomen/Pelvis CT 01/28/25 10:55 IMPRESSION: Findings which are suggestive of a diarrhea-like illness within the distal colon, for which clinical correlation is needed. No acute intra-abdominal pathology, as detailed above. Pelvic/Transvag US 01/28/25 12:38 IMPRESSION: 1. A few subcentimeter anechoic cysts/follicles at the right ovary. Left ovary is not visualized but as noted above on the immediately prior CT of the abdomen and pelvis the left ovary appears similar in size and appearance, also with a few subcentimeter cysts/follicles and with enhancement visible in both ovaries on the postcontrast CT. 2. Normal uterus and trace amount of likely physiologic free fluid in the deep pelvis. Discharge Plan Discharge Clinical Impression: Left sided abdominal pain, Gastroenteritis UTI (urinary tract infection) Qualifiers: Urinary tract infection type: acute cystitis Hematuria presence: with hematuria Qualified Code(s): N30.01 - Acute cystitis with hematuria Patient Disposition: Home Condition: Stable Instructions: Antibiotic Form, Urinary Tract Infection in Women (ED), Gastroenteritis (ED) Additional Instructions: Take antibiotics as prescribed for urinary tract infection. Continue Tylenol, ibuprofen, Bentyl as needed for further abdominal pain. You may also use heating pad for pain. Utilize zofran as needed for further nausea. Increase fluid intake. Recommend electrolyte rich fluids, gatorade, pedialyte, body armour. Recommend clear liquids or bland diet until symptoms improve, such as bananas, rice, applesauce, toast, or crackers. Follow up with your primary care doctor and/or GI for further evaluation. Call offices to make appointments. Return to the ED if you experience worsening or severe symptoms, unable to keep down food or drink, severe pain, fevers, rectal bleeding, vomiting blood, or any other symptoms of concern. Patient Language: Macedonian Prescriptions: New dicyclomine 20 mg tablet 20 mg PO TID PRN (Reason: Abdominal Discomfort) Qty: 15 0RF cephalexin 500 mg capsule 500 mg PO Q6H 7 Days Qty: 28 0RF ondansetron 4 mg tablet,disintegrating 4 mg PO Q8H PRN (Reason: nausea and vomiting) Qty: 15 0RF No Action norgestimate-ethinyl estradiol [Estarylla] 0.25-0.035 mg tablet Ibsrela 50 mg tablet semaglutide 0.5 mg/0.1 mL syringe subcut omeprazole 20 mg capsule,delayed release(DR/EC) 20 mg PO DAILY Follow-up/Referrals: Vidal Palencia MD [Physician] - (GI) UNKNOWN,DOCTOR [Primary Care Provider] - Time of Disposition: 13:10
--- OUTSIDE RECORDS SUMMARY | 2025-01-28 11:19 | XMS_ITS | Clinical Summary ---
Author Organization [facility] Virtual Care Address [address] [place] [phone] Phone Care Team Providers Care Pearler Name Role Phone Unknown, Notinfile Primary Care [...] Department Care Team Description 11/22/2024 2:15 PM DEVELOPING MACHINE TENDER Ancillary Procedure [facility] Imaging at [address] [phone] H/O hand surgery 11/22/2024 2:00 PM DEVELOPING MACHINE TENDER Office Visit [facility] at [address] [phone] Roger Higginbotham NP Left wrist pain (Primary [...] Comments Blood Pressure 120/84 11/22/2024 2:04 PM DEVELOPING MACHINE TENDER Pulse 89 11/22/2024 2:04 PM DEVELOPING MACHINE TENDER Temperature 36.6 C (97.9 F) 11/22/2024 2:04 PM DEVELOPING MACHINE TENDER Respiratory Rate 22 11/22/2024 2:04 PM DEVELOPING MACHINE TENDER Oxygen Saturation 98% 11/22/2024 2:04 PM DEVELOPING MACHINE TENDER Inhaled Oxygen Concentration - - Weight 86.2 kg (190 lb) 11/22/2024 2:04 PM DEVELOPING MACHINE TENDER Height 177.8 cm (5' 10 ) 07/27/2024 [...] (Appt Today, Awaiting Results) 11/22/2024 2:19 PM DEVELOPING MACHINE TENDER H/O hand surgery from Last 3 Months Results * XR Wrist Left 3 or More Views (11/22/2024 2:19 PM DEVELOPING MACHINE TENDER) Anatomical Region Laterality Modality Upper Extremities, Wrist Left Digital Radiography 11/22/2024 3:10 PM DEVELOPING MACHINE TENDER Narrative 11/22/2024 3:11 PM DEVELOPING MACHINE TENDER EXAM DESCRIPTION: XR WRIST LEFT 3 OR [...] by Lane Reyna M.D. T: Report ID: [id number] Reading Location: [id number] Procedure Note Lane Reyna MD - 11/22/2024 [...] by Lane Reyna M.D. T: Report ID: [id number] Reading Location: [id number] Roger Higginbotham NP IMG XR PROCEDURES Final Result from Last 3 Months Insurance [facility] HMO/PPO Address: [address] [place] [address] Care Teams Pearler Relationship Specialty Start Date End Date Unknown, Notinfile PCP - General 09/18/24
--- OUTSIDE RECORDS SUMMARY | 2025-01-28 11:19 | XMS_ITS | Clinical Summary ---
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
--- OUTSIDE RECORDS SUMMARY | 2025-01-28 11:19 | XMS_ITS | Continuity of Care Document ---
Author Organization [facility] Address [address] [place] [address] Phone Care Team Providers Care Order Picker Name Role Phone Gustavo HERMOSILLO MD, Amir Unavailable Unavailable Procedures Procedure Date Routine ophthalmological exa Routine ophthalmological exa Advance Directives Directive Yes / No Effective Date File Name No Information Encounters Encounter Description Practice Location Reason(s) For Visit Diagnoses Date Provider Providers Copied on Encounter [facility], [address] [place] [address], [id number] tel:[phone] [facility] 6200 9 Gustavo HERMOSILLO Amir. [facility], [address] [place] [address], [id number]. tel:[phone] Family History Family Member Type Diagnosis Age At Onset No Information Payers Payer name Insurance type Covered constitution party ID Authoriza tion(s) [facility] Adminstration CI [id number] Social History Type Description Quantity Date Captured [...]
--- OUTSIDE RECORDS SUMMARY | 2025-01-28 11:19 | XMS_ITS | Referral Summary ---
Author Organization [facility] Virtual Care Address [address] [place] [phone] Phone Care Team Providers Care Acquisitions Librarian Name Role Phone Unknown, Notinfile Primary Care Provider Unavail able Encounters Date Type Department Care Team Description 11/22/2024 2:15 PM PAPER SUPERVISOR Ancillary Procedure [facility] Medical [facility] Imaging at [address] [phone] H/O hand surgery 11/22/2024 2:00 PM PAPER SUPERVISOR Office Visit [facility]ient Care at [address] [phone] Roger Higginbotham NP Left wrist [...] Comments Blood Pressure 120/84 11/22/2024 2:04 PM PAPER SUPERVISOR Pulse 89 11/22/2024 2:04 PM PAPER SUPERVISOR Temperature 36.6 C (97.9 F) 11/22/2024 2:04 PM PAPER SUPERVISOR Respiratory Rate 22 11/22/2024 2:04 PM PAPER SUPERVISOR Oxygen Saturation 98% 11/22/2024 2:04 PM PAPER SUPERVISOR Inhaled Oxygen Concentration - - Weight 86.2 kg (190 lb) 11/22/2024 2:04 PM PAPER SUPERVISOR Height 177.8 cm (5' 10 ) 07/27/2024 12:11 PM CDT Body Mass Index 27.26 07/27/2024 12:11 PM CDT Plan of Treatment Not on file Procedures Procedure Name Priority Date/Time Associated Diagnosis Comments XR WRIST LEFT 3 OR MORE VIEWS Schedule KHANH, Read KHANH (Appt Today, Awaiting Results) 11/22/2024 2:19 PM PAPER SUPERVISOR H/O hand surgery from Last 3 Months Results * XR Wrist Left 3 or More Views (11/22/2024 2:19 PM PAPER SUPERVISOR) Anatomical Region Laterality Modality Upper Extremities, Wrist Left Digital Radiography 11/22/2024 3:10 PM PAPER SUPERVISOR Narrative 11/22/2024 3:11 PM PAPER SUPERVISOR EXAM DESCRIPTION: XR WRIST LEFT 3 OR [...] by Lane Reyna M.D. T: Report ID: [id number] Reading Location: [id number] Procedure Note [address] Reyna MD - 11/22/2024 [...] by Lane Reyna M.D. T: Report ID: [id number] Reading Location: [place] [id number] Roger Higginbotham LODGE SALES ASSOCIATE IMG XR PROCEDURES Final Result from Last 3 Months Insurance [place] [address] Care Teams Acquisitions Librarian Relationship Specialty Start Date End Date Unknown, Notinfile PCP - General 09/18/24
[2025-01-28] MEDS: DICYCLOMINE HCL 10 MG CAPSULE 20 MG PO (11:38)
[2025-01-28] MEDS: KETOROLAC 30 MG/ML VIAL (*BKC) IV PUSH (11:38)
[2025-01-28 13:31] VITALS: BP 128/87; PULSE 89; RESP 17; TEMP 36.9; O2SAT 100
== END 2025-01-28 13:40 | disposition home or self-care (01) ==
PROVIDERS: Emergency Provider Physician Assistant
DX: K52.9 Noninfective gastroenteritis and colitis, unspecified (principal); N30.01 Acute cystitis with hematuria; E28.2 Polycystic ovarian syndrome; K58.9 Irritable bowel syndrome, unspecified; Z90.49 Acquired absence of other specified parts of digestive tract; Z79.3 Long term (current) use of hormonal contraceptives; Z79.85 Long-term (current) use of injectable non-insulin antidiabetic drugs
CPT/HCPCS: 36415; 74177; 76830; 76856; 80053; 81001; 81025; 83690; 85025; 87086; 96361; 96365; 96375; 99284; A9270; J0696; J1885; J2405; J7030; Q9967